=== PATIENT | male | born 1980 | race Hispanic/Latino ===

== ENCOUNTER 2021-05-08 00:38 | Inpatient (IN) | payer BC, MEDICAID ==
[~2021-05-08] VITALS: Ht 180.3 cm; Wt 108.0 kg
[2021-05-08] VITALS (10 sets, daily range): BP systolic 106–141; BP diastolic 62–93
[2021-05-08] MEDS ORDERED: SODIUM CHLORIDE 0.9% 1000ML 1,000 ML IV SCH ×2 (02:00→02:15)
[2021-05-08 02:15] LABS: BASOPHILS % (AUTO) 0.1 % (0.0-5.0); EOSINOPHILS % (AUTO) 0.3 % (0.0-8.0); LYMPHOCYTES % (AUTO) 15.3 % (21.0-51.0); MEAN CORPUSCULAR HEMOGLOBIN 29.8 pg (27.0-33.0); MEAN CORPUSCULAR HGB CONC 34.5 g/dL (32.0-36.0); MEAN CORPUSCULAR VOLUME 86.4 fL (79-99); MONOCYTES % (AUTO) 6.4 % (3.0-13.0); NEUTROPHILS % (AUTO) 77.6 % (40.0-77.0); PLATELET COUNT (AUTO) 267 K/uL (130-400); RED BLOOD CELL COUNT(AUTO) 4.86 MIL/uL (4.50-6.20); RED CELL DISTRIBUTION WIDTH 12.2 % (11.0-15.5); WHITE BLOOD COUNT (AUTO) 12.3 K/uL (4.8-10.8)
[2021-05-08 02:25] LABS: INR 1.05 (0.85-1.15); PROTHROMBIN TIME 11.4 SEC (9.6-11.6)
[2021-05-08] MEDS ORDERED: SODIUM CHLORIDE 0.9% 1000ML 2,000 ML IV ONE (02:25)
[2021-05-08 02:53] LABS: CARBON DIOXIDE 28 mmol/L (21-32); CHLORIDE 105 mmol/L (101-111); GLOMERULAR FILTR. RATE CALC 88 mL/min (>60); GLUCOSE,RANDOM 104 mg/dL (70-105); POTASSIUM 3.9 mmol/L (3.5-5.1); SODIUM SERUM 140 mmol/L (136-145); UREA NITROGEN, BLOOD 6 mg/dL (7-18)
[2021-05-08 03:01] LABS: ALBUMIN 3.8 g/dL (3.5-5.0); ALCOHOL, BLOOD < 3 mg/dL (0-10); AMMONIA 23 umol/L (11-32); ASPARTATE AMINOTRANSFERASE 24 U/L (10-37); BILIRUBIN,TOTAL 0.3 mg/dL (0.2-1.0); CREATINE KINASE, TOTAL 110 U/L (21-232); MYOGLOBIN 95 ng/mL (10-92); TOTAL PROTEIN, SERUM 7.2 g/dL (6.0-8.3); TROPONIN I < 0.04 ng/mL (0.00-0.06)
[2021-05-08 03:30] LABS: ALANINE AMINOTRANSFERASE 34 U/L (12-78)
[2021-05-08 03:46] LABS: APPEARANCE,URINE Clear (CLEAR); BILIRUBIN,URINE Negative (NEGATIVE); COLOR,URINE Yellow (YELLOW); GLUCOSE, URINE (UA) Negative (NEGATIVE); KETONES,URINE Negative (NEGATIVE); LEUKOCYTE ESTERASE ,URINE Negative (NEGATIVE); NITRATE,URINE Negative (NEGATIVE); OCCULT BLOOD,URINE Negative (NEGATIVE); PH,URINE 5.5 (5.0-8.0); PROTEIN,URINE Negative (NEGATIVE); UROBILINOGEN,URINE 0.2 mg/dL (0.2-1.0)
[2021-05-08 03:53] LABS: AMPHET/METH SCREEN,URINE NEGATIVE (NEGATIVE); BARBITURATE SCREEN, URINE NEGATIVE (NEGATIVE); BENZODIAZEPINES SCREEN,URINE NEGATIVE (NEGATIVE); CANNABINOID SCREEN,URINE NEGATIVE (NEGATIVE); COCAINE SCREEN,URINE NEGATIVE (NEGATIVE); OPIATE SCREEN,URINE NEGATIVE (NEGATIVE); PHENCYCLIDINE SCREEN,URINE NEGATIVE (NEGATIVE)
[2021-05-08] MEDS ORDERED: ONDANSETRON HCL 4 MG/2 ML VIAL IV PRN (05:00)
[2021-05-08] MEDS ORDERED: LORAZEPAM 2 MG/ML 1 ML VIAL IVP PRN (05:00)
[2021-05-08] MEDS ORDERED: ACETAMINOPHEN 325 MG TAB PO PRN ×2 (05:00)
[2021-05-08 06:58] LABS: CHOLESTEROL 178 mg/dL (<200); HDL CHOLESTEROL 46 mg/dL (29-71); LDL DIRECT 122 mg/dL (0-99); TRIGLYCERIDES 85 mg/dL (30-200)
[2021-05-08] MEDS: FAMOTIDINE 20MG TAB 20 MG TAB PO SCH ×2 (07:59→21:06)
[2021-05-08] MEDS ORDERED: GADOTERATE MEGLUMINE 10 MMOL/20 ML VIAL IV ONE (10:21)
[2021-05-08] MEDS: LACTATED RINGERS 1000ML 1,000 ML IV SCH (11:23)
[2021-05-08] MEDS ORDERED: FOLIC ACID 1 MG TABLET PO SCH (17:15)
[2021-05-08] MEDS ORDERED: THIAMINE HCL 100 MG TABLET PO SCH (17:15)
[2021-05-08] MEDS ORDERED: THIAMINE HCL 100 MG TABLET ONE (20:59)
[2021-05-08] MEDS ORDERED: LEVETIRACETAM 500 MG in SODIUM CHLORIDE 0.9% 100 ML IV SCH (21:00)
[2021-05-08] MEDS ORDERED: FOLIC ACID 1 MG TABLET ONE (21:00)
[2021-05-09 04:24] VITALS: BP 118/74
[2021-05-09 05:50] LABS: HEMATOCRIT 41.7 % (42-54); MEAN CORPUSCULAR HEMOGLOBIN 29.4 pg (27.0-33.0); MEAN CORPUSCULAR HGB CONC 33.3 g/dL (32.0-36.0); MEAN CORPUSCULAR VOLUME 88.2 fL (79-99); RED BLOOD CELL COUNT(AUTO) 4.73 MIL/uL (4.50-6.20); RED CELL DISTRIBUTION WIDTH 12.1 % (11.0-15.5); WHITE BLOOD COUNT (AUTO) 7.4 K/uL (4.8-10.8)
[2021-05-09] MEDS: LACTATED RINGERS 1000ML 1,000 ML IV SCH (06:07)
[2021-05-09 06:13] LABS: ALBUMIN 3.5 g/dL (3.5-5.0); BILIRUBIN,TOTAL 0.5 mg/dL (0.2-1.0); CREATININE 0.9 mg/dL (0.5-1.5); POTASSIUM 3.4 mmol/L (3.5-5.1); TOTAL PROTEIN, SERUM 6.5 g/dL (6.0-8.3)
[2021-05-09] MEDS ORDERED: KCL 20 MEQ ERTAB PO SCH (06:30)
[2021-05-09 08:00] VITALS: BP 144/73
[2021-05-09] MEDS ORDERED: THIAMINE HCL 100 MG TABLET PO SCH (09:00)
[2021-05-09] MEDS ORDERED: FOLIC ACID 1 MG TABLET PO SCH (09:00)
[2021-05-09] MEDS ORDERED: LEVETIRACETAM 500 MG TABLET PO ONE (09:45)
[2021-05-09] MEDS ORDERED: LEVETIRACETAM 250 MG TABLET PO SCH (09:45)
[2021-05-09 12:00] VITALS: BP 133/76
[2021-05-09] MEDS ORDERED: LEVE750T4 PO (12:23)
== END 2021-05-09 17:00 | disposition home or self-care (01) | DRG 101 ==
LOC: EDH 00:38 → EDHIP 04:50 → 3BH 17:46
PROVIDERS: ADMIT Internal Medicine; ATTEND Internal Medicine
DX: G40.909 Epilepsy, unspecified, not intractable, without status epilepticus (principal); E87.6 Hypokalemia; Z79.899 Other long term (current) drug therapy; Z90.49 Acquired absence of other specified parts of digestive tract
CPT/HCPCS: 36415; 70450; 70553; 80053; 80061; 80305; 81003; 82140; 82550; 83605; 83735; 83874; 84484; 85025; 85027; 85610; G0378; J1953; J7030; J7120